=== PATIENT | female | born 1940 | race Caucasian/White ===

== ENCOUNTER → 2016-12-31 | Outpatient (CLI) | payer BC ==
[~2016-12-31] MED LIST: ACET-1256 PO; Colace PO; DIPH25CA37 PO; LOSA50TA6 PO; PRLSR20 PO; SIME125C11 PO; WARF2TAB PO; WITCPAD RE; ZINC20OI RE; [UNRECOGNIZED DRUG - CODE] RE; [UNRECOGNIZED DRUG - CODE] TOP
[2016-12-31 12:17] LABS: BASO % 0.8 %; BASO ABS # 0.03 K/uL (0-0.2); COMPLETE YES; EOS % 5.2 %; HEMATOCRIT 42.1 % (37-47); LYMPH % 22.8 %; LYMPH ABS # 0.88 K/uL (1.2-3.4); MEAN CELL VOLUME 97.2 fL (80-100); MEAN CORPUSCULAR HEMOGLOBIN 33.3 pg (25-34); MEAN CORPUSCULAR HGB CONC 34.2 g/dl (32-36); MEAN PLATELET VOLUME 9.6 fL (7.4-10.4); MONO % 14.5 %; NEUT % 56.7 %; PLATELET COUNT 228 K/uL (130-400); RED BLOOD COUNT 4.33 M/uL (4.2-5.4); WHITE BLOOD COUNT 3.86 K/uL (4.8-10.8)
[2016-12-31 12:38] LABS: BLOOD UREA NITROGEN 14 mg/dl (7-18); BUN/CREATININE RATIO 19.2 (10-20); CARBON DIOXIDE 27 mmol/L (21-32); CHLORIDE 108 mmol/L (98-107); CHOLESTEROL 233 mg/dl (0-200); CREATININE 0.75 mg/dl (0.60-1.20); GLUCOSE 99 mg/dl (70-99); POTASSIUM 3.9 mmol/L (3.5-5.1); SODIUM 141 mmol/L (136-145); TRIGLYCERIDES 208 mg/dl (0-150); VERY LOW DENSITY LIPOPROT CALC 42 mg/dl
[2016-12-31 12:42] LABS: CALCIUM 9.3 mg/dl (8.5-10.1); CHOLESTEROL/HDL RATIO 4.2; HDL CHOLESTEROL 56 mg/dl; LDL CHOLESTEROL CALCULATED 135 mg/dl
[2016-12-31 13:05] LABS: ESTIMATED AVERAGE GLUCOSE 108 mg/dl; HA1C FLAG Normal (Normal)
--- NOTE | 2017-01-05 11:56 | CODING QUERY MEDICAL NECESSITY ---
SUPPORTING DIAGNOSIS NEEDED A supporting diagnosis is required for the test/procedure performed on this patient in order for us to be reimbursed by the patient's insurance. Please provide a supporting diagnosis for the following test/procedure listed below next to the test name along with your signature. *If there is no additional diagnosis for this patient that would support the following test/procedure please document that below next to the test/procedure. Test(s)/Procedure(s) that require a supporting diagnosis: DOS 12/31 * Hba1c DIAGNOSIS: Provider Signature: Date: Thank you Sandie Diaz [facility] Information Management Once completed, please kindly fax back to [phone] For questions please call [phone]
== END | disposition home or self-care (01) ==
LOC: C.LABBFT 07:41
PROVIDERS: ATTEND Internal Medicine
DX: R73.03 Prediabetes (principal); I10 Essential (primary) hypertension; E78.5 Hyperlipidemia, unspecified; D72.819 Decreased white blood cell count, unspecified; M85.80 Other specified disorders of bone density and structure, unspecified site; E55.9 Vitamin D deficiency, unspecified

== ENCOUNTER → 2017-07-23 | Outpatient (CLI) | payer BC ==
--- NOTE | 2017-07-23 15:37 | MAMMOGRAPHY REPORT ---
BILATERAL DIGITAL SCREENING MAMMOGRAM WITH CAD: 07/23/2017 TECHNIQUE: Current study was also evaluated with a Computer Aided Detection (CAD) system. Bilateral CC and MLO views were obtained. COMPARISON: Comparison is made to exams dated: 07/17/2016 mammogram, 07/16/2015 mammogram, 09/11/2013 mammogram, 09/09/2012 mammogram, 09/03/2011 mammogram, and 09/01/2010 mammogram - [facility]. BREAST COMPOSITION: The tissue of both breasts is heterogeneously dense, which may obscure small mas ses. FINDINGS: No suspicious masses, calcifications, or areas of architectural distortion are noted in ei ther breast. There has been no significant interval change compared to prior exams. Scattered bilater al benign-appearing calcifications are not significantly changed. IMPRESSION: ACR BI-RADS CATEGORY 2: BENIGN There is no mammographic evidence of malignancy. A 1 year screening mammogram is recommended. The pa tient will receive written notification of the results. Approximately 10% of breast cancers are not detected with mammography. A negative mammographic report should not delay biopsy if a clinically suggestive mass is present. Ira Gregory M.D. /:07/23/2017 10:42:52 Patient Portal Concierge: Briseyda ARCHER(Irasema)(M), [facility] letter sent: Normal 1/2 BI-RADS Code: ACR BI-RADS Category 2: Benign
== END | disposition home or self-care (01) ==
LOC: C.MAMM 09:26
PROVIDERS: ATTEND Internal Medicine
DX: Z12.31 Encounter for screening mammogram for malignant neoplasm of breast (principal)

== ENCOUNTER → 2017-08-13 | Outpatient (CLI) | payer BC | END | disposition home or self-care (01) | LOC: C.RDSM 09:00 | PROVIDERS: ATTEND Physical Medicine & Rehabilitation Sports Medicine | DX: Z96.653 Presence of artificial knee joint, bilateral (principal) ==

== ENCOUNTER → 2017-12-03 | Outpatient (CLI) | payer BC ==
--- NOTE | 2017-12-03 11:30 | DIAGNOSTIC IMAGING REPORT ---
RIGHT SHOULDER 3 VIEWS HISTORY: RIGHT SHOULDER PAIN COMPARISON: None. FINDINGS: There is no fracture or dislocation. Soft tissues are unremarkable. The right clavicle is intact. Mild degenerative changes at the acromioclavicular and glenohumeral joints. IMPRESSION: Mild osteoarthritis within the right shoulder. No fractures. Electronically signed by: Nick Dubose M.D. 12/03/2017 11:29 AM Dictated Date/Time: 12/03/2017 11:28 AM
== END | disposition home or self-care (01) ==
LOC: C.RDSM 11:00
PROVIDERS: ATTEND Physician Assistant
DX: M25.511 Pain in right shoulder (principal)

== ENCOUNTER → 2018-01-19 | Outpatient (CLI) | payer BC ==
--- NOTE | 2018-01-19 14:04 | DIAGNOSTIC IMAGING REPORT ---
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 Lungs are clear. Diaphragms are smooth. IMPRESSION: Stable postoperative changes left hemithorax. No acute or interval process. The above report was generated using voice recognition software. It may contain grammatical, syntax or spelling errors. Electronically signed by: Martin Medley M.D. 01/19/2018 2:03 PM Dictated Date/Time: 01/19/2018 2:02 PM
== END | disposition home or self-care (01) ==
LOC: C.RAD1850 13:44
PROVIDERS: ATTEND Internal Medicine
DX: C7A.090 Malignant carcinoid tumor of the bronchus and lung (principal)

== ENCOUNTER → 2018-01-20 | Outpatient (CLI) | payer BC ==
[2018-01-20 12:16] LABS: BASO % 0.4 %; BASO ABS # 0.02 K/uL (0-0.2); EOS % 8.4 %; EOS ABS # 0.38 K/uL (0-0.5); HEMATOCRIT 41.5 % (37-47); HEMOGLOBIN 14.1 g/dL (12.0-16.0); LYMPH % 21.1 %; LYMPH ABS # 0.96 K/uL (1.2-3.4); MEAN CORPUSCULAR HEMOGLOBIN 32.3 pg (25-34); MEAN PLATELET VOLUME 9.5 fL (7.4-10.4); MONO % 9.9 %; MONO ABS # 0.45 K/uL (0.11-0.59); NEUT % 60.2 %; NEUT ABS # 2.73 K/uL (1.4-6.5); PLATELET COUNT 247 K/uL (130-400); RED CELL DISTRIBUTION WIDTH CV 12.7 % (11.5-14.5); RED CELL DISTRIBUTION WIDTH SD 43.9 fL (36.4-46.3); WHITE BLOOD COUNT 4.54 K/uL (4.8-10.8)
[2018-01-20 12:36] LABS: BLOOD UREA NITROGEN 18 mg/dl (7-18); CALCIUM 9.1 mg/dl (8.5-10.1); CARBON DIOXIDE 25 mmol/L (21-32); CREATININE 0.85 mg/dl (0.60-1.20); GLUCOSE 94 mg/dl (70-99); POTASSIUM 3.8 mmol/L (3.5-5.1); SODIUM 140 mmol/L (136-145)
[2018-01-20 12:39] LABS: CHOLESTEROL 213 mg/dl (0-200); LDL CHOLESTEROL CALCULATED 132 mg/dl
[2018-01-20 12:56] LABS: HEMOGLOBIN A1C 5.5 % (4.5-5.6)
== END | disposition home or self-care (01) ==
LOC: C.LABBFT 08:51
PROVIDERS: ATTEND Internal Medicine
DX: I10 Essential (primary) hypertension (principal); E55.9 Vitamin D deficiency, unspecified; D72.819 Decreased white blood cell count, unspecified; E78.5 Hyperlipidemia, unspecified; R73.03 Prediabetes

== ENCOUNTER → 2018-04-14 | Outpatient (CLI) | payer BC | END | disposition home or self-care (01) | LOC: C.LABBFT 11:38 | PROVIDERS: ATTEND Internal Medicine | DX: E55.9 Vitamin D deficiency, unspecified (principal) ==

== ENCOUNTER 2024-07-17 10:41 | Inpatient (IN) ==
--- NOTE | 2024-07-17 11:09 | Emergency Department Note ---
Impression & Plan Dizziness, Non-ST elevation MO (NSTEMI), Aneurysm of intracranial artery ED Provider Note HISTORY OF PRESENT ILLNESS: Patient is an 84-year-old female presenting with dizziness and vomiting. Patient reports that this morning around 1015 she was driving her car when she suddenly felt like the world was spinning and she got very dizzy. She had to pull to the side of the road and her took over driving. States that she is still feeling slightly dizzy on arrival to the ER, but has been vomiting for the last hour or so. She has never had symptoms like this before. Denies recent head injury or chiropractic intervention of her neck. Denies any chest pain or shortness of breath. Denies any headache or changes in vision. Denies any numbness, tingling or weakness in her extremities. She denies any recent fevers. She states that 2 days ago she did have an episode in which her vision seemed abnormal and she thought she was having an ocular migraine, but did not have any headache. She had changes in her depth perception and lights in the peripheral vision, but these only lasted for about 10 to 15 minutes. She was feeling well afterwards and went on a walk that evening. She states that she was well yesterday. She currently is having vomiting. Denies any abdominal pain. Denies any dysuria or hematuria. ROS: as above PHYSICAL EXAM: Constitutional: Patient appears in no acute distress. HENT: Head: Normocephalic and atraumatic. Eyes: EOMI, PERRL. Patient has fatigable nystagmus with leftward lateral gaze and with upward gaze. Mouth/Throat: Mucous membranes moist. Neck: Trachea midline. Neck supple. Cardiovascular: RRR, No murmurs, rubs or gallops. Intact distal pulses. Pulmonary/Chest: No respiratory distress. Breath sounds clear and equal bilaterally. No wheezes or rales. Abdominal: Abdomen soft, no tenderness, rebound or guarding. Musculoskeletal: No edema, tenderness or deformity noted. Skin: Warm and dry. No rash, erythema, pallor or cyanosis Psychiatric: Appropriate mood and affect for situation. Neurological: Alert and keenly responsive. Facies symmetric. Able to raise eyebrows, close eyes, smile, puff mouth, stick out tongue, move tongue left and right and raise palate symmetrically. Able to shrug shoulders. PERRLA. SILT to forehead below eye and at jawline. Can hear soft noise bilaterally. Strength 5/5 in bilateral upper and lower extremities. SILT throughout bilateral upper and lower extremities. MDM: - Vitals signs showed hypertension - History obtained via patient. History as above. - Chronic conditions affecting care: HTN; GERD; HLD; carotid artery stenosis - Differential diagnoses include, but are not limited to: CVA; intracranial hemorrhage; ACS; dysrhythmia; electrolyte abnormality - Order placed for continuous cardiac monitoring. At this time, monitor showed rate of 76 bpm with normal sinus rhythm, per my interpretation. - External medical records reviewed. Wellness visit note dated 05/04/2023 was reviewed. Patient follows in their clinic for her multiple medical problems. - EKG interpreted by myself showed normal sinus rhythm. Rate 75 bpm. QT 408. No acute ischemic changes. - Laboratory workup interpreted by myself showed normal WBC; normal PT/INR; slight hypokalemia (K 3.4); elevated troponin (84.8) - Patient given 4 mg IV zofran and 25 mg PO meclizine for symptoms. - CXR negative for pneumonia, per my interpretation - Repeat troponin elevated but stable at 88.5 - CT head wo contrast negative for acute intracranial pathology. - CTA head negative for large vessel occlusion. 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 - CTA neck - UA showed bacteria and few white cells. However, the patient is asymptomatic. Will await urine culture to determine if antibiotics are necessary. - Discussed case with structures mechanic, Dr. Morrison, at 13:10. He reports from a cardiac standpoint the patient is stable and does not necessarily need admission. - Discussed results with patient and her . Offered admission to the hospital, given concern that the dizziness may be cardiac etiology. However, she is feeling improved after Zofran and meclizine and would like to be discharged home. Instructed on return precautions. Recommending taking a baby aspirin daily. A prescription for Zofran 4 mg and meclizine 12.5 mg was sent to the patient's pharmacy. - Patient remained stable throughout the visit. Results were discussed with the patient and patient's family. They were given the opportunity to ask questions. Had lengthy discussion with patient about supportive care return precautions. No changes to medications. Patient to follow up with primary care physician for further evaluation and management. All questions answered. Patient agreeable plan. ASSESSMENT AND PLAN: Diagnosis: dizziness; NSTEMI; aneurysm of intracranial artery Plan: discharge Past Med/Surg History Problem List (Updated 07/17/24 @ 14:[address] MD) Aneurysm of intracranial artery (Acute) Non-ST elevation MO (NSTEMI) (Acute) Dizziness (Acute) Carotid artery stenosis (Acute) Cystocele, midline (Acute) Dyslipidemia (Acute) GERD (gastroesophageal reflux disease) (Acute) Hypertension (Acute) Leukopenia (Acute) Osteopenia (Acute) Rectocele (Acute) Pre-diabetes (Chronic) Vitamin D deficiency (Chronic) Solitary lung nodule (Acute 05/22/14) History of malignant carcinoid tumor of bronchus and lung Medical History (Updated 07/17/24 @ 14:[address] MD) Carcinoid tumor, bronchus, lung, malignant Polymyalgia rheumatica Osteoarthritis of right knee (10/03/14) 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) Surgical History History of tubal ligation History of tonsillectomy History of adenoidectomy History of colonoscopy History of appendectomy History of arthroscopy of left knee History of tooth extraction History of knee replacement History of thoracotomy Family History Mother Parkinsonism Son Hirschsprung's disease Unknown Cataract Brother Prostate cancer Aunt Breast cancer Father Asthma Denies family history of Ovarian cancer Coronary heart disease Myocardial infarction Colorectal cancer Social History Smoking Status: Former smoker Age Quit Using Tobacco: 36; Second Hand Exposure: No; Do You Dip or Chew Tobacco: No; Hx Alcohol Use: Yes Alcohol Intake Frequency Comment: Approximately 1 drink per day. Hx Substance Use: No Preferred Language: Gabonese Communication Ability: Effective Visual Impairment: No Limitations Hearing Ability: Normal marital status: Current Living Situation: Spouse current occupational status: retired Feels Safe at Home: Yes Childhood Exposure to Second-Hand Smoke: No Diet: regular caffeine: Yes Dental Care, Regularly: Yes Physical Activity Frequency: Does not Exercise Seatbelt Use: always Sunscreen Use: No Allergies Allergies Allergy/AdvReac Type Severity Reaction Status Date / Time clindamycin Allergy Intermediate RASH Verified 05/05/23 07:53 codeine Allergy Intermediate HALLALUCINA Verified 05/05/23 07:53 TIONS erythromycin base Allergy Intermediate RASH Verified 05/05/23 07:53 ketoprofen Allergy Intermediate RASH Verified 05/05/23 07:53 Penicillins Allergy Intermediate rash Verified 05/05/23 07:53 Sulfa (Sulfonamide Allergy Intermediate rash Verified 05/05/23 07:53 Antibiotics) tramadol Allergy Mild DIZZINESS Verified 05/05/23 07:53 adhesive Allergy Unknown TEARING OF Verified 05/05/23 07:53 SKIN, SCARRING OF SKIN atorvastatin [From Lipitor] Allergy Verified 05/05/23 07:53 celecoxib [From Celebrex] Allergy Verified 05/05/23 07:53 shellfish derived Allergy Verified 05/05/23 07:53 meloxicam AdvReac Verified 05/05/23 07:53 Lobster Allergy Unknown GI UPSET Uncoded 05/05/23 07:53 sea food AdvReac Uncoded 05/05/23 07:53 Home Meds Home Medications Medication Instructions Recorded Confirmed acetaminophen 325 mg tablet 1,000 mg PO BID 04/05/19 05/05/23 cholecalciferol (vitamin D3) 125 5,000 units PO DAILY #30 tabs 04/05/19 05/05/23 mcg (5,000 unit) tablet diphenhydramine HCl 25 mg tablet 25 mg PO DAILY 04/05/19 05/05/23 famotidine 20 mg tablet 20 mg PO BID gerd 04/08/21 05/05/23 simethicone 125 mg chewable tablet 375 mg PO DAILY PRN abdominal 05/05/23 05/05/23 distention Previous Rx's Medication Instructions Recorded AREXVY 0.5 ml IM ONCE #1 dose 06/30/23 losartan 50 mg tablet 50 mg PO DAILY #90 tabs 04/17/24 meclizine 12.5 mg tablet 12.5 mg PO BID PRN dizziness #20 07/17/24 tabs ondansetron HCl 4 mg tablet 4 mg PO Q6H PRN nausea and 07/17/24 vomiting #14 tabs Results & Data (ED) Vital Signs Vital Signs - 24 hr 07/17/24 10:44 07/17/24 12:12 07/17/24 12:33 Temperature 36.3 C L Temperature Source Skin Pulse Rate 84 76 Pulse Rate [Apical] 71 Pulse Rhythm Pulse Rhythm [Apical] Regular Pulse Strength [Apical] Normal Respiratory Rate 20 18 Respiratory Effort / Characteristics Non-Labored Spontaneous Non-Labored Spontaneous Respiratory Depth Normal Normal Respiratory Pattern Regular Blood Pressure 157/90 H Blood Pressure [Left Arm] 139/80 Blood Pressure Mean 112 Blood Pressure Mean [Left Arm] 99 Blood Pressure Position [Left Arm] Semi-fowlers Pulse Oximetry 96 99 Oxygen Delivery Method Room Air Room Air Sepsis Recent Fever Within 48 Hours No Sepsis New/Unexplained Change in Mental Status N/A Sepsis Action Taken by Nursing No Action Required 07/17/24 12:33 07/17/24 14:00 Temperature Temperature Source Pulse Rate 76 Pulse Rate [Apical] 76 Pulse Rhythm Regular Pulse Rhythm [Apical] Pulse Strength [Apical] Respiratory Rate 17 17 Respiratory Effort / Characteristics Non-Labored Spontaneous Respiratory Depth Normal Respiratory Pattern Blood Pressure Blood Pressure [Left Arm] 145/86 H Blood Pressure Mean Blood Pressure Mean [Left Arm] 105 Blood Pressure Position [Left Arm] Semi-fowlers Pulse Oximetry 98 97 Oxygen Delivery Method Room Air Room Air Sepsis Recent Fever Within 48 Hours Sepsis New/Unexplained Change in Mental Status Sepsis Action Taken by Nursing Laboratory Data 07/17/24 11:15 07/17/24 11:15 Lab Results 07/17/24 07/17/24 07/17/24 Range/Units 11:15 11:21 13:04 WBC 6.98 (4.8-10.8) K/ul RBC 4.27 (4.20-5.40) M/uL Hgb 13.8 (12.0-16.0) g/dl POC Hgb 13.9 (12.0-16.0) g/dl Hct 39.6 (37.0-47.0) % POC Hct 41 (37-47) % MCV 92.7 (80.0-100.0) fL MCH 32.3 (25.0-34.0) pg MCHC 34.8 (32.0-36.0) g/dL RDW Std Deviation 40.0 (36.4-46.3) fL RDW Coeff of Artemio 11.9 (11.5-14.5) % Plt Count 315 (130-400) K/uL MPV 9.0 L (9.4-12.4) fL Immature Gran % (Auto) 1.1 % Neut % (Auto) 50.6 % Lymph % (Auto) 34.2 % Gates % (Auto) 10.0 % Eos % (Auto) 3.4 % Baso % (Auto) 0.7 % Neut # (Auto) 3.52 (1.40-6.50) K/uL Lymph # (Auto) 2.39 (1.20-3.40) K/uL Gates # (Auto) 0.70 H (0.11-0.59) K/uL Eos # (Auto) 0.24 (0.00-0.50) K/uL Baso # (Auto) 0.05 (0.00-0.20) K/uL Immature Gran # (Auto) 0.08 (0.01-0.20) K/uL PT 10.3 (9.0-12.0) Seconds INR 0.9 (0.9-1.1) POC Sodium 141 (135-144) mmol/L Sodium 140 (136-145) mmol/L POC Potassium 3.4 (3.3-5.0) mmol/L Potassium 3.4 L (3.5-5.1) mmol/L POC Chloride 107 (101-112) mmol/L Chloride 107 (98-107) mmol/L Carbon Dioxide 22 (21-32) mmol/L POC Total CO2 20 L (24-31) mmol/L Anion Gap 11 (3-11) POC Anion Gap 18.0 (16-25) mmol/L POC BUN 15 (7-18) mg/dl BUN 16 (6-23) mg/dl Creatinine 0.87 (0.6-1.2) mg/dl POC Creatinine 0.9 (0.6-1.3) mg/dl Est Cr Clr Drug Dosing Not Reportable eGFR 66.48 BUN/Creatinine Ratio 18.4 (10-20) Glucose 146 H (70-99(Fasting)) mg/dl POC Glucose (other) 146 H (70-99) mg/dl Calcium 9.8 (8.6-10.3) mg/dl POC Ioniz Calcium Quentin 1.25 (1.12-1.32) mmol/l Magnesium 2.1 (1.7-2.4) mg/dl Total Bilirubin 0.6 (0.2-1.0) mg/dl AST 18 (13-39) U/L ALT 17 (7-52) U/L Alkaline Phosphatase 68 (34-104) U/L Troponin I High Sens 84.8 H* 88.5 H* (0-14) pg/ml Total Protein 7.1 (6.0-8.3) gm/dl Albumin 4.1 (3.4-5.0) gm/dl Globulin 3.0 (2.5-4.0) gm/dl Albumin/Globulin Ratio 1.4 (0.9-2) Urine Color Urine Appearance (Clear) Urine pH (4.5-7.5) Ur Specific [place] (1.000-1.030) Urine Protein (Negative) Urine Glucose (UA) (Negative) Urine Ketones (Negative) Urine Blood (Negative) Urine Nitrite (Negative) Urine Bilirubin (Negative) Urine Urobilinogen (Negative) Ur Leukocyte Esterase (Negative) Urine WBC (Auto) (0-5) /hpf Urine RBC (Auto) (0-2) /hpf U Hyaline Cast (Auto) (0-2) /lpf U Epithel Cells (Auto) (0-2) /hpf Urine Bacteria (Auto) (None Seen) 07/17/24 Range/Units 13:54 WBC (4.8-10.8) K/ul RBC (4.20-5.40) M/uL Hgb (12.0-16.0) g/dl POC Hgb (12.0-16.0) g/dl Hct (37.0-47.0) % POC Hct (37-47) % MCV (80.0-100.0) fL MCH (25.0-34.0) pg MCHC (32.0-36.0) g/dL RDW Std Deviation (36.4-46.3) fL RDW Coeff of Artemio (11.5-14.5) % Plt Count (130-400) K/uL MPV (9.4-12.4) fL Immature Gran % (Auto) % Neut % (Auto) % Lymph % (Auto) % Gates % (Auto) % Eos % (Auto) % Baso % (Auto) % Neut # (Auto) (1.40-6.50) K/uL Lymph # (Auto) (1.20-3.40) K/uL Gates # (Auto) (0.11-0.59) K/uL Eos # (Auto) (0.00-0.50) K/uL Baso # (Auto) (0.00-0.20) K/uL Immature Gran # (Auto) (0.01-0.20) K/uL PT (9.0-12.0) Seconds INR (0.9-1.1) POC Sodium (135-144) mmol/L Sodium (136-145) mmol/L POC Potassium (3.3-5.0) mmol/L Potassium (3.5-5.1) mmol/L POC Chloride (101-112) mmol/L Chloride (98-107) mmol/L Carbon Dioxide (21-32) mmol/L POC Total CO2 (24-31) mmol/L Anion Gap (3-11) POC Anion Gap (16-25) mmol/L POC BUN (7-18) mg/dl BUN (6-23) mg/dl Creatinine (0.6-1.2) mg/dl POC Creatinine (0.6-1.3) mg/dl Est Cr Clr Drug Dosing eGFR BUN/Creatinine Ratio (10-20) Glucose (70-99(Fasting)) mg/dl POC Glucose (other) (70-99) mg/dl Calcium (8.6-10.3) mg/dl POC Ioniz Calcium Quentin (1.12-1.32) mmol/l Magnesium (1.7-2.4) mg/dl Total Bilirubin (0.2-1.0) mg/dl AST (13-39) U/L ALT (7-52) U/L Alkaline Phosphatase (34-104) U/L Troponin I High Sens (0-14) pg/ml Total Protein (6.0-8.3) gm/dl Albumin (3.4-5.0) gm/dl Globulin (2.5-4.0) gm/dl Albumin/Globulin Ratio (0.9-2) Urine Color Yellow Urine Appearance Clear (Clear) Urine pH 5.5 (4.5-7.5) Ur Specific [place] > 1.045 H (1.000-1.030) Urine Protein Negative (Negative) Urine Glucose (UA) Negative (Negative) Urine Ketones Negative (Negative) Urine Blood Negative (Negative) Urine Nitrite Negative (Negative) Urine Bilirubin Negative (Negative) Urine Urobilinogen Negative (Negative) Ur Leukocyte Esterase Trace H (Negative) Urine WBC (Auto) 6-10 H (0-5) /hpf Urine RBC (Auto) 11-20 H (0-2) /hpf U Hyaline Cast (Auto) 0-2 (0-2) /lpf U Epithel Cells (Auto) 0-2 (0-2) /hpf Urine Bacteria (Auto) 4+ H (None Seen) Administered Medications Discontinued Medications Diphenhydramine HCl (Diphenhydramine 50 Mg/Ml Vial) 50 mg IV ONE ONE Stop: 07/17/24 11:00 Last Admin: 07/17/24 11:20 Dose: 50 mg Documented By: JEWELL Ioversol (Optiray 320 125ml) 118 ml IV ONCE ONE Stop: 07/17/24 12:08 Last Admin: 07/17/24 12:02 Dose: 118 ml Documented By: SARAH Meclizine HCl (Meclizine Hcl 25 Mg Tab) 25 mg PO NOW STA Stop: 07/17/24 11:51 Last Admin: 07/17/24 12:38 Dose: 25 mg Documented By: JEWELL Methylprednisolone (Methylprednisolone 125 Mg/2 Ml Vial) 40 mg IV NOW ONE Stop: 07/17/24 11:00 Last Admin: 07/17/24 11:20 Dose: 40 mg Documented By: JEWELL Ondansetron HCl (Ondansetron Inj 2 Mg/Ml 2 Ml Vial) 4 mg IV NOW STA Stop: 07/17/24 10:59 Last Admin: 07/17/24 11:17 Dose: 4 mg Documented By: JEWELL Imaging Data Radiologist's Impression: Head CT 07/17/24 10:58 CT OF THE HEAD WITHOUT CONTRAST CLINICAL HISTORY: dizziness; nystagmus COMPARISON STUDY: No previous studies for comparison. CT DOSE: 890.26 mGy.cm TECHNIQUE: Helical axial images of the head were obtained without IV contrast. Automated exposure control was utilized for the study. A dose lowering technique was utilized adhering to the principles of ALARA. FINDINGS: No acute intracranial hemorrhage, midline shift or mass effect is present. The ventricular system is unremarkable. The basal cisterns are patent. No extra-axial collections are present. There are no findings to suggest acute dural sinus thrombosis or acute territorial infarct. No significant calvarial abnormalities are present. Visualized portions of the sinuses and mastoid air cells are clear. IMPRESSION: No acute intracranial findings. ACT 112: Negative or not required by law. Electronically signed by: Mac Phillips M.D. 07/17/2024 12:25 PM Head CTA 07/17/24 10:58 CTA ANGIOGRAPHY OF THE HEAD CLINICAL HISTORY: dizziness; nystagmus COMPARISON STUDY: No previous studies for comparison. TECHNIQUE: Helical axial images of the head were obtained following uneventful intravenous administration of 118 cc of Optiray. Sagittal and coronal reconstructions were viewed as well as maximal intensity projections on an independent 3-D workstation. Automated exposure control was utilized for the study. A dose lowering technique was utilized adhering to the principles of ALARA. FINDINGS: No acute intracranial hemorrhage, midline shift or mass effect is present. Ventricular system is normal. Basal cisterns are patent. There are no extra-axial collections. The bilateral M1, M2, A1 and A2 segments are patent. There is moderate calcified atherosclerotic plaque within the cavernous carotids without stenosis. There is a tiny 2 mm saccular aneurysm arising from the right MCA bifurcation on image 126 of 282. There are no additional intracranial aneurysms. The posterior circulation is intact. No large vessel occlusion is present. IMPRESSION: 1. No large vessel occlusion. 2. 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 3. Moderate plaque within the cavernous carotids without stenosis. ACT 112: Negative or not required by law. Electronically signed by: Mac Phillips M.D. 07/17/2024 12:38 PM Neck CTA 07/17/24 10:59 CT angio neck with con CLINICAL HISTORY: 84 years-old Female with dizziness; nystagmus. Acute dizziness with vertigo and vomiting COMPARISON STUDY: Head CT and CTA head of same day TECHNIQUE: Following the IV administration of 118 of Optiray, CT angiogram of the neck was performed from the aortic arch to the skull base. Images are reviewed in the axial, sagittal, and coronal planes. 3-D MIPS images are created and assessed. IV contrast was administered without complication. All measurements were calculated based on NASCET criteria. A dose lowering technique was utilized adhering to the principles of ALARA. FINDINGS: Three-vessel morphology of the thoracic aortic arch. There is patency of innominate and image subclavian arteries. Common carotid arteries are patent. Atherosclerosis of the carotid bulbs without high-grade stenosis. The internal carotid arteries are patent. Codominant and widely patent vertebral arteries. Patent basilar artery. No aneurysm, dissection, high-grade stenosis or arterial occlusion. The lung apices. No thyroid nodule or lymphadenopathy. Unremarkable soft tissues. Degenerative changes of the cervical spine without acute fracture. IMPRESSION:Unremarkable CTA of the neck. ACT 112: Negative or not required by law. The above report was generated using voice recognition software. It may contain grammatical, syntax or spelling errors. Electronically signed by: Richy Larose M.D. 07/17/2024 12:19 PM Discharge Plan Visit Data Chief Complaint: Vertigo Stated Complaint: NAUSEA/VOMITING, VERTIGO ED Provider: Abiola Lane Discharge Problem: Dizziness, Non-ST elevation MO (NSTEMI), Aneurysm of intracranial artery Patient Disposition: Home - Self-Care Discharge Instructions Krames/Other Patient Handouts: Troponin, ED Dizziness, Uncertain Cause Activity Restrictions/Additional Instructions: Your laboratory workup in the emergency department showed that you had an elevated heart enzyme level or troponin level. Your EKG did not show any acute ischemic changes. The structures mechanic felt that you could follow-up with your outpatient doctor and outpatient structures mechanic for further workup. Your CT imaging was negative for any acute evidence of stroke or blood in your head. You were incidentally found to have a 2 mm aneurysm arising from the right MCA bifurcation and some moderate plaque within your Carotids without significant stenosis. This will need close monitoring by your primary care provider. However, if you develop a significant headache, changes in vision, vomiting, chest pain or shortness of breath, or any new or worsening symptoms, he should present back to the emergency department immediately. Recommend starting a baby aspirin daily. Forms Stand Alone Forms: My [facility], Important Visit Information Prescriptions Prescriptions: New ondansetron HCl 4 mg tablet 4 mg PO Q6H PRN (Reason: nausea and vomiting) Qty: 14 0RF meclizine 12.5 mg tablet 12.5 mg PO BID PRN (Reason: dizziness) Qty: 20 0RF No Action AREXVY 0.5 ml IM ONCE Qty: 1 0RF losartan 50 mg tablet 50 mg PO DAILY Qty: 90 3RF famotidine 20 mg tablet 20 mg PO BID simethicone 125 mg tablet,chewable 375 mg PO DAILY PRN (Reason: abdominal distention) acetaminophen 325 mg tablet 1,000 mg PO BID cholecalciferol (vitamin D3) 5,000 unit tablet 5,000 units PO DAILY Qty: 30 diphenhydramine HCl 25 mg tablet 25 mg PO DAILY Referrals Referrals: Davide Jacobsen MD [Primary Care Provider] -
[2024-07-17] MEDS: ONDANSETRON INJ 2 MG/ML 2 ML VIAL IV STA ×2 (11:17→20:03)
[2024-07-17] MEDS: methylPREDNISolone 125 MG/2 ML VIAL IV ONE (11:20)
[2024-07-17] MEDS: diphenhydrAMINE 50 MG/ML VIAL IV ONE (11:20)
[2024-07-17 11:34] LABS: iSTAT Creatinine 0.9 mg/dl (0.6-1.3); iSTAT Hemoglobin 13.9 g/dl (12.0-16.0); iSTAT Ionized Calcium 1.25 mmol/l (1.12-1.32); iSTAT Potassium 3.4 mmol/L (3.3-5.0)
[2024-07-17 11:38] LABS: Basophils # (auto) 0.05 K/uL (0.00-0.20); Basophils % (auto) 0.7 %; Eosinophils # (auto) 0.24 K/uL (0.00-0.50); Eosinophils % (auto) 3.4 %; Hematocrit (blood only) 39.6 % (37.0-47.0); Hemoglobin 13.8 g/dl (12.0-16.0); Immature Granulocytes # (auto) 0.08 K/uL (0.01-0.20); Immature Granulocytes % (auto) 1.1 %; Lymphocytes # (auto) 2.39 K/uL (1.20-3.40); Lymphocytes % (auto) 34.2 %; Mean Corpuscular Hemoglobin 32.3 pg (25.0-34.0); Mean Corpuscular Hgb Conc 34.8 g/dL (32.0-36.0); Mean Corpuscular Volume 92.7 fL (80.0-100.0); Neutrophils # (auto) 3.52 K/uL (1.40-6.50); Neutrophils % (auto) 50.6 %; Platelet Count 315 K/uL (130-400); RDW Coefficient of Variation 11.9 % (11.5-14.5); Red Blood Count 4.27 M/uL (4.20-5.40); White Blood Count 6.98 K/ul (4.8-10.8)
[2024-07-17 11:52] LABS: Alanine Aminotransferase 17 U/L (7-52); Albumin Globulin Ratio 1.4 (0.9-2); Albumin Level 4.1 gm/dl (3.4-5.0); Alkaline Phosphatase 68 U/L (34-104); Anion Gap 11 (3-11); Aspartate Aminotransferase 18 U/L (13-39); BUN Creatinine Ratio 18.4 (10-20); Bilirubin,Total 0.6 mg/dl (0.2-1.0); Blood Urea Nitrogen 16 mg/dl (6-23); Calcium 9.8 mg/dl (8.6-10.3); Carbon Dioxide 22 mmol/L (21-32); Chloride 107 mmol/L (98-107); Glucose 146 mg/dl (70-99(Fasting)); Magnesium 2.1 mg/dl (1.7-2.4); Potassium 3.4 mmol/L (3.5-5.1); Sodium 140 mmol/L (136-145); Total Protein 7.1 gm/dl (6.0-8.3)
[2024-07-17 12:01] LABS: INR 0.9 (0.9-1.1); Prothrombin Time 10.3 Seconds (9.0-12.0)
[2024-07-17] MEDS: OPTIRAY 320 125ml IV ONE (12:02)
[2024-07-17 12:08] LABS: Troponin I High Sensitivity 84.8 pg/ml (0-14)
--- NOTE | 2024-07-17 12:21 | CT Scan Report ---
CT angio neck with con CLINICAL HISTORY: 84 years-old Female with dizziness; nystagmus. Acute dizziness with vertigo and vomiting COMPARISON STUDY: Head CT and CTA head of same day TECHNIQUE: Following the IV administration of 118 of Optiray, CT angiogram of the neck was performed from the aortic arch to the skull base. Images are reviewed in the axial, sagittal, and coronal plane s. 3-D MIPS images are created and assessed. IV contrast was administered without complication. All m easurements were calculated based on NASCET criteria. A dose lowering technique was utilized adherin g to the principles of ALARA. FINDINGS: Three-vessel morphology of the thoracic aortic arch. There is patency of innominate and image subclav morro arteries. Common carotid arteries are patent. Atherosclerosis of the carotid bulbs without high-g rade stenosis. The internal carotid arteries are patent. Codominant and widely patent vertebral arter ies. Patent basilar artery. No aneurysm, dissection, high-grade stenosis or arterial occlusion. The lung apices. No thyroid nodule or lymphadenopathy. Unremarkable soft tissues. Degenerative change s of the cervical spine without acute fracture. IMPRESSION:Unremarkable CTA of the neck. ACT 112: Negative or not required by law. The above report was generated using voice recognition software. It may contain grammatical, syntax o r spelling errors. Electronically signed by: Richy Larose M.D. 07/17/2024 12:19 PM
--- NOTE | 2024-07-17 12:26 | CT Scan Report ---
CT OF THE HEAD WITHOUT CONTRAST CLINICAL HISTORY: dizziness; nystagmus COMPARISON STUDY: No previous studies for comparison. CT DOSE: 890.26 mGy.cm TECHNIQUE: Helical axial images of the head were obtained without IV contrast. Automated exposure con trol was utilized for the study. A dose lowering technique was utilized adhering to the principles o f ALARA. FINDINGS: No acute intracranial hemorrhage, midline shift or mass effect is present. The ventricular system is unremarkable. The basal cisterns are patent. No extra-axial collections are present. There are no findings to suggest acute dural sinus thrombosis or acute territorial infarct. No significant calvarial abnormalities are present. Visualized portions of the sinuses and mastoid air cells are elva ar. IMPRESSION: No acute intracranial findings. ACT 112: Negative or not required by law. Electronically signed by: Mac Phillips M.D. 07/17/2024 12:25 PM
[2024-07-17] MEDS: MECLIZINE HCL 25 MG TAB PO STA ×2 (12:38→17:46)
--- NOTE | 2024-07-17 12:40 | CT Scan Report ---
CTA ANGIOGRAPHY OF THE HEAD CLINICAL HISTORY: dizziness; nystagmus COMPARISON STUDY: No previous studies for comparison. TECHNIQUE: Helical axial images of the head were obtained following uneventful intravenous administr ation of 118 cc of Optiray. Sagittal and coronal reconstructions were viewed as well as maximal inten sity projections on an independent 3-D workstation. Automated exposure control was utilized for the study. A dose lowering technique was utilized adhering to the principles of ALARA. FINDINGS: No acute intracranial hemorrhage, midline shift or mass effect is present. Ventricular syst em is normal. Basal cisterns are patent. There are no extra-axial collections. The bilateral M1, M2, A1 and A2 segments are patent. There is moderate calcified atherosclerotic plaque within the cavernou s carotids without stenosis. There is a tiny 2 mm saccular aneurysm arising from the right MCA bifurc ation on image 126 of 282. There are no additional intracranial aneurysms. The posterior circulation is intact. No large vessel occlusion is present. IMPRESSION: 1. No large vessel occlusion. 2. 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 3. Moderate plaque within the cavernous carotids without stenosis. ACT 112: Negative or not required by law. Electronically signed by: Mac Phillips M.D. 07/17/2024 12:38 PM
[2024-07-17 14:19] LABS: Troponin I High Sensitivity 88.5 pg/ml (0-14)
[2024-07-17 14:34] LABS: Appearance Urine Clear (Clear); Bacteria Urine Automated 4+ (None Seen); Bilirubin Urine Negative (Negative); Blood Urine Negative (Negative); Cast Urine Automated 0-2 /lpf (0-2); Color Urine Yellow; Epithelial Cell Urine Auto 0-2 /hpf (0-2); Glucose Urine UA Negative (Negative); Ketones Urine Negative (Negative); Leukocyte Esterase Urine Trace (Negative); Nitrite Urine Negative (Negative); Protein Urine Negative (Negative); Specific Gravity Urine > 1.045 (1.000-1.030); Urobilinogen Urine Negative (Negative); pH Urine 5.5 (4.5-7.5)
--- NOTE | 2024-07-17 15:14 | Electrocardiogram Report ---
Test Reason : Blood Pressure : */* mmHG Vent. Rate : 75 BPM Atrial Rate : 75 BPM P-R Int : 200 ms QRS Dur : 84 ms QT Int : 408 ms P-R-T Axes : 20 -2 -4 degrees QTcB Int : 455 ms Normal sinus rhythm Poor R wave progression, consider anterior PA vs. lead placement vs. LVH Abnormal ECG When compared with ECG of 18-Apr-2014 10:58, Borderline criteria for Anterior infarct are now Present Confirmed by Sahil Morrison ([id number]) on 07/17/2024 3:13:48 PM Referred By: REFERRED SELF Confirmed By: Sahil Morrison
[2024-07-17] MEDS: ONDANSETRON 4 MG OD TAB PO STA (16:17)
--- NOTE | 2024-07-17 16:17 | History & Physical Report ---
Date of Service July 17, 2024 Assessment & Plan (1) Dizziness: Plan: Patient with worsening vertigo, nausea, and vomiting that began while driving this morning - symptom relief with Zofran in ER, became dizzy and needed readmitted and tried to go home - CT head without acute changes - CTA head without acute changes, tiny saccular aneurysm 2mm from right MCA noted - Neck CTA unremarkable - Lateral Nystagmus on exam, otherwise neuro exam unremarkable - Brain MRI pending - lipid panel with AM labs - monitor on telemetry Vomiting - patient with continued vomiting, mucous membranes dry on exam - Zofran and meclizine as needed - increase diet as tolerated with Zofran relief - With national IV fluid shortage, will defer IV fluid resuscitation at this time if able to tolerate PO fluids with Zofran (2) Hypokalemia: Plan: likely secondary to recent vomiting - 3.4 on admission -> 40 MeQ PO ordered - Mg pending - recheck with AM labs (3) Bacteriuria: Plan: asymptomatic - UA showing trace leukocyte esterase, 6-10 white blood cells, 11-20 RBC, 4+ bacteria - Urine culture pending - will defer antibiotic therapy at this time is asymptomatic (4) Elevated troponin: Plan: Ordered due to dizziness/ pre-syncopal episode - 84.8 -> 88.5 - patient denies chest pain, dyspnea, stated it was not a presyncopal episode but ongoing dizziness - EKG NSR, no ischemic changes - continue to trend - monitor on telemetry - Am BMP and Mg Plan Chronic stable diagnoses: HTN - continue losartan GERD - continue famotidine osteopenia - continue Vit D supplement pre-diabetes - diet controlled, recent A1c 5.7% VTE ppx: SCDs Diet: clears - increase as tolerated Code status: DNR/DNI Dispo: Med surg/ tele Admission and Anticipated Discharge Date Admission Date: 07/17/24 History of Present Illness Chief Complaint: dizziness Primary Care Provider: Davide Jacobsen MD Patient was seen at bedside with her who was a previous heme/oncology doctor. Patient is an 84-year-old female with a past medical history of CAD, hyperlipidemia, hypertension, osteopenia, prediabetes, GERD, benign tumor resected in 2013. She presents today due to dizziness since Wednesday. She stated on Wednesday she began with dizziness that her stated was similar to an ocular migraine. She stated she felt like she had difficulty with depth perception. This improved and then while driving this morning she began with a dizzy episode, had to bone puller, and came into the ER. Her symptoms were relieved with Zofran, Benadryl, Solu-Medrol, and Antivert. She was discharged home from the ER and on her way out the door, her dizziness resumed and she was readmitted. Her troponin was found to be elevated at 88.1, EKG within normal limits. Dizziness has now resumed and she is vomiting on exam. She also stated that she is felt lightheaded all weekend. The patient's is good friends with Dr. Morrison evaluated the patient and stated that he does not believe it is a cardiac cause at this time. Patient denies vision changes, rhinorrhea, sore throat, cough, dyspnea, dyspnea on exertion, chest pain, abdominal pain, edema, numbness, tingling. She has not had any flulike symptoms or illness recently. She denies history of previous VTE or episodes like this prior. She does not use oxygen at baseline. She took all of her home medications this morning. She is DNR/DNI status. The patient was discussed with Dr. Marie at the time of the admission/consult. Allergies Allergy/AdvReac Type Severity Reaction Status Date / Time clindamycin Allergy Intermediate RASH Verified 05/05/23 07:53 codeine Allergy Intermediate HALLALUCINA Verified 05/05/23 07:53 TIONS erythromycin base Allergy Intermediate RASH Verified 05/05/23 07:53 ketoprofen Allergy Intermediate RASH Verified 05/05/23 07:53 Penicillins Allergy Intermediate rash Verified 05/05/23 07:53 Sulfa (Sulfonamide Allergy Intermediate rash Verified 05/05/23 07:53 Antibiotics) tramadol Allergy Mild DIZZINESS Verified 05/05/23 07:53 adhesive Allergy Unknown TEARING OF Verified 05/05/23 07:53 SKIN, SCARRING OF SKIN atorvastatin [From Lipitor] Allergy Verified 05/05/23 07:53 celecoxib [From Celebrex] Allergy Verified 05/05/23 07:53 shellfish derived Allergy Verified 05/05/23 07:53 meloxicam AdvReac Verified 05/05/23 07:53 Lobster Allergy Unknown GI UPSET Uncoded 05/05/23 07:53 sea food AdvReac Uncoded 05/05/23 07:53 Home Medications Medication Instructions Recorded Confirmed Type acetaminophen 325 mg tablet 1,000 mg PO BID 04/05/19 07/17/24 History cholecalciferol (vitamin D3) 125 5,000 units PO DAILY #30 tabs 04/05/19 07/17/24 History mcg (5,000 unit) tablet diphenhydramine HCl 25 mg tablet 25 mg PO DAILY 04/05/19 07/17/24 History famotidine 20 mg tablet 20 mg PO BID gerd 04/08/21 07/17/24 History simethicone 125 mg chewable tablet 375 mg PO DAILY PRN abdominal 05/05/23 05/05/23 History distention AREXVY 0.5 ml IM ONCE #1 dose 06/30/23 Rx losartan 50 mg tablet 50 mg PO DAILY #90 tabs 04/17/24 07/17/24 Rx meclizine 12.5 mg tablet 12.5 mg PO BID PRN dizziness #20 07/17/24 Rx tabs ondansetron HCl 4 mg tablet 4 mg PO Q6H PRN nausea and 07/17/24 Rx vomiting #14 tabs Past Med/Surg History Problem List (Updated 07/18/24 @ 11:36 by Jonathan Barrera MD) Embolic stroke Elevated troponin Bacteriuria Hypokalemia Aneurysm of intracranial artery (Acute) Non-ST elevation VT (NSTEMI) (Acute) Dizziness (Acute) Carotid artery stenosis (Acute) Cystocele, midline (Acute) Dyslipidemia (Acute) GERD (gastroesophageal reflux disease) (Acute) Hypertension (Acute) Leukopenia (Acute) Osteopenia (Acute) Rectocele (Acute) Pre-diabetes (Chronic) Vitamin D deficiency (Chronic) Solitary lung nodule (Acute 05/22/14) History of malignant carcinoid tumor of bronchus and lung Medical History (Updated 07/18/24 @ 11:36 by Jonathan Barrera MD) Carcinoid tumor, bronchus, lung, malignant Polymyalgia rheumatica Osteoarthritis of right knee (10/03/14) 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) Surgical History History of tubal ligation History of tonsillectomy History of adenoidectomy History of colonoscopy History of appendectomy History of arthroscopy of left knee History of tooth extraction History of knee replacement History of thoracotomy Family History Mother Parkinsonism Son Hirschsprung's disease Unknown Cataract Brother Prostate cancer Aunt Breast cancer Father Asthma Denies family history of Ovarian cancer Coronary heart disease Myocardial infarction Colorectal cancer Social History Smoking Status: Former smoker Age Quit Using Tobacco: 36; Second Hand Exposure: No; Do You Dip or Chew Tobacco: No; Tobacco Cessation Education Requested by Patient: No Hx Alcohol Use: Yes Alcohol Intake Frequency Comment: Approximately 1 drink per day. Hx Substance Use: No Preferred Language: Kinyarwanda Communication Ability: Effective Visual Impairment: No Limitations Hearing Ability: Normal Forest Aide Required: No Beliefs That Will Affect Care: None marital status: Current Living Situation: Spouse current occupational status: retired Other Information That Helps Us Care for You: No Feels Safe at Home: Yes Safety Concerns: Feels Safe At This Time Childhood Exposure to Second-Hand Smoke: No Diet: regular caffeine: Yes Dental Care, Regularly: Yes Physical Activity Frequency: Does not Exercise Seatbelt Use: always Sunscreen Use: No Review of Systems Review of Systems: see HPI Physical Exam Physical Exam: The patient is awake, alert and oriented 3, well developed and well nourished, normocephalic and atraumatic, in no acute distress. Non-toxic appearing. HEENT- EOMI, mucous membranes dry. Hearing grossly intact. Heart-normal S1 and S2. No murmurs, rubs or gallops. Lungs-clear bilaterally, no respiratory distress, no accessory muscle use. Abdomen-normal bowel sounds and soft. No ascites noted. Non-tender. Vomiting on exam. Extremities- no clubbing, cyanosis, or edema. Rheumatologic-normal range of motion. Eyes: + nystagmus Musculoskeletal: no cyanosis or clubbing, extremities motor strength 5/5 Neurologic: PERRL, EOMI, accommodation nl, no face palsy, no dysarthria CN's II-XI intact bilaterally Motor/Sensory: no sensory deficit Results & Data Results & Data Vital Signs (Past 12 Hours) Vital Signs Temp Pulse Pulse Resp BP BP Pulse Ox 07/17/24 16:00 92 H 20 163/93 H 94 07/17/24 15:10 82 17 140/83 91 07/17/24 14:00 76 17 145/86 H 97 07/17/24 12:33 76 17 98 07/17/24 12:33 71 18 139/80 99 07/17/24 12:12 76 07/17/24 10:44 36.3 C L 84 20 157/90 H 96 O2 Del Method 07/17/24 16:00 Room Air 07/17/24 15:10 Room Air 07/17/24 14:00 Room Air 07/17/24 12:33 Room Air 07/17/24 12:33 Room Air 07/17/24 12:12 07/17/24 10:44 Room Air Code Status & VTE Plan Code Status DNR/ DNI VTE Prophylaxis Plan VTE Prophylaxis will be ordered: Yes Supervising Physician Co-Signing Physician Notes I personally saw and examined the patient. I independently reviewed the labs, EKG, imaging, problem list, medication list, past medical history and family history. I verified all vargas points and agree with Yeimi Panchal PA-C with the following exceptions and/or additions: 84 year old female presents to the ER with vertigo, waxing and waning symptoms. No prior episode of BPPV. No ear fullness or recent viral illness O/E HS RRR, no murmurs, Chest CTAB, Abdo SNT, no pronator drift, lower extremity 5/5 power, no extremity sensation deficit, no nystagmus, PERRL, EOMI intact A/P Vertigo - improved with meclizine although severe symptoms and ongoing would recommend MRI brain w/wo IV contrast. PT eval for Familia manoeuvre if MRI negative. PG Care Time/CCT Total # of Minutes Spent Total Time Spent with Patient: Total time spent is greater than 50% in coordination of care (as documented) at patient's floor/unit and/or counseling patient: Coding Level of Care Code 78959 INT INP/OBS CARE 3/75MIN Diagnoses Dizziness R42 Hypokalemia E87.6 Bacteriuria R82.71 Elevated troponin R79.89
[2024-07-17] MEDS: GADOBUTROL 65ML VIAL IV ONE (18:15)
[2024-07-17] MEDS ORDERED: ONDANSETRON INJ 2 MG/ML 2 ML VIAL IV PRN (18:48)
[2024-07-17] MEDS: POTASSIUM CHLORIDE CRTAB 20 MEQ TABCR PO STA (20:02)
[2024-07-17] MEDS: FAMOTIDINE 20 MG TAB PO SCH (21:06)
[2024-07-17] MEDS: MECLIZINE HCL 25 MG TAB PO PRN (22:34)
[2024-07-18 06:23] LABS: Hematocrit (blood only) 36.3 % (37.0-47.0); Hemoglobin 12.4 g/dl (12.0-16.0); Mean Corpuscular Hemoglobin 31.9 pg (25.0-34.0); Mean Corpuscular Hgb Conc 34.2 g/dL (32.0-36.0); Mean Corpuscular Volume 93.3 fL (80.0-100.0); Mean Platelet Volume 9.2 fL (9.4-12.4); Platelet Count 280 K/uL (130-400); RDW Standard Deviation 41.3 fL (36.4-46.3); Red Blood Count 3.89 M/uL (4.20-5.40); White Blood Count 12.62 K/ul (4.8-10.8)
[2024-07-18 06:56] LABS: BUN Creatinine Ratio 17.2 (10-20); Calcium 9.5 mg/dl (8.6-10.3); Chol HDL Ratio 4.4 (0-5); Creatinine Clr Calc Pharmacy 43.9 ml/min; Magnesium 2.1 mg/dl (1.7-2.4); Potassium 4.1 mmol/L (3.5-5.1)
[2024-07-18] MEDS: LOSARTAN POTASSIUM 50 MG TAB PO SCH (08:04)
[2024-07-18] MEDS: CHOLECALCIFEROL 125 MCG (5,000 UNITS) TAB PO SCH (08:04)
--- NOTE | 2024-07-18 08:36 | Magnetic Resonance Report ---
MR brain wo/w con HISTORY: 84 years-old Female Vertigo COMPARISON: Head CT of same day. TECHNIQUE: Multiplanar and multisequence MRI of the brain was obtained with and without IV contrast. FINDINGS: There are several punctate multivascular territory distribution of restricted diffusion within the ce rebral hemispheres including the superior left frontal lobe, left periventricular distribution, cauda te nucleus and right posterior temporal/bilateral occipital distributions. No acute or subacute malika torial infarct. Midline structures appear unremarkable. Degenerative changes of the cervical spine. N o pathologic blooming artifact. Study is motion degraded. Cerebral venous sinuses and major arterial flow voids appear patent. Skull, orbits and soft tissues a re unremarkable. Prior bilateral lens repair. Mastoid air cells and paranasal sinuses appear clear. M ild involutional changes. Mild scattered T2/FLAIR hyperintense foci throughout the white matter. No a bnormal enhancement. IMPRESSION: 1. There are several small subcentimeter infarcts within the cerebral hemispheres compatible with a p roximal thromboembolic source. 2. No acute or subacute territorial infarct, intracranial hemorrhage or midline shift. 3. Involutional changes with mild chronic microvascular ischemic disease. 4. No abnormal enhancement. ACT 112: Negative or not required by law. The above report was generated using voice recognition software. It may contain grammatical, syntax o r spelling errors. Dictated: 07/18/2024 8:13 AM Transcribed: 07/18/2024 8:23 AM Arian [id number] [email or web address] Electronically signed by: Richy Larose M.D. 07/18/2024 8:34 AM
--- NOTE | 2024-07-18 10:09 | XCELERA ---
[id number] [id number]
[2024-07-18] MEDS: MECLIZINE 12.5 MG TAB PO SCH (10:13)
[2024-07-18 11:09] VITALS: RESP 18
--- NOTE | 2024-07-18 11:48 | Neurology Consultation ---
Date of Consultation July 18, 2024 Assessment & Plan (1) Embolic stroke: (2) Aneurysm of intracranial artery: Plan 84-year-old female with a remote history of lung cancer, history of polymyalgia rheumatica a few years ago, in remission, presenting with a transient visual epi sode over the weekend resembling a migrainous aura, followed by an episode of intense vertigo with associated nausea and emesis. Subsequently found to have acute multifocal embolic appearing infarcts on brain MRI involving both cerebral hemispheres. CT angiography of the head and neck revealing an incidental 2 mm saccular aneurysm arising from the right MCA bifurcation and moderate bilateral cavernous carotid plaque without significant stenosis. Would recommend dual antiplatelet therapy, aspirin 81 mg/day and clopidogrel 75 mg/day for 3 weeks, followed by aspirin monotherapy, 81 mg/day. Patient has a history of intolerance to statins. However, could consider a trial of a low-dose of rosuvastatin given presence of carotid atherosclerotic plaque bilaterally. Would recommend outpatient ambulatory cardiac monitoring. Given patient's history of polymyalgia rheumatica, although in remission, would recommend checking an ESR and CRP. If her inflammatory markers are significantly elevated, could consider obtaining a temporal artery biopsy. Should not require additional outpatient neurology follow-up. History of Present Illness Reason for Consultation: embolic strokes Requesting Physician: Yaz Attending Physician: Andrew Mukherjee MD History of Present Illness The patient is an 84-year-old female who presented to the emergency department yesterday with a complaint of acute, severe, vertigo, with associated nausea and emesis. Her symptoms improved with treatment. A CTA of the head and neck was negative for hemorrhage or acute process. There was evidence of an incidental 2 mm saccular aneurysm at the right MCA bifurcation and moderate carotid plaque. She was discharged from the emergency department. However, upon leaving the hospital her dizziness returned and she was subsequently admitted for further evaluation. In addition to the above dizziness, the patient also reported an unusual episode of vision disturbance of sudden onset that occurred over the weekend. She has some difficulty describing the vision disturbance although reported some difficulty with focusing and perhaps depth perception, followed by a circular visual distortion in the periphery potentially consistent with a migrainous aura. She does not have a history of migraine with aura, however. She does not recall experiencing any episodes of focal weakness, sensory loss, or change in speech. A follow-up brain MRI was completed which revealed multiple small embolic appearing infarcts in both cerebral hemispheres, no hemorrhage. I did independently review these images. Currently, the patient is asymptomatic, no headache, dizziness, vertigo, vision loss, diplopia, change in speech, focal weakness or sensory loss. No difficulty with gait or balance. Past medical history notable for polymyalgia rheumatica that was diagnosed and treated several years ago, has not been clinically active since that time. Allergies Allergy/AdvReac Type Severity Reaction Status Date / Time clindamycin Allergy Intermediate RASH Verified 05/05/23 07:53 codeine Allergy Intermediate HALLALUCINA Verified 05/05/23 07:53 TIONS erythromycin base Allergy Intermediate RASH Verified 05/05/23 07:53 ketoprofen Allergy Intermediate RASH Verified 05/05/23 07:53 Penicillins Allergy Intermediate rash Verified 05/05/23 07:53 Sulfa (Sulfonamide Allergy Intermediate rash Verified 05/05/23 07:53 Antibiotics) tramadol Allergy Mild DIZZINESS Verified 05/05/23 07:53 adhesive Allergy Unknown TEARING OF Verified 05/05/23 07:53 SKIN, SCARRING OF SKIN atorvastatin [From Lipitor] Allergy Verified 05/05/23 07:53 celecoxib [From Celebrex] Allergy Verified 05/05/23 07:53 shellfish derived Allergy Verified 05/05/23 07:53 meloxicam AdvReac Verified 05/05/23 07:53 Lobster Allergy Unknown GI UPSET Uncoded 05/05/23 07:53 sea food AdvReac Uncoded 05/05/23 07:53 Home Medications Medication Instructions Recorded Confirmed Type acetaminophen 325 mg tablet 1,000 mg PO BID 04/05/19 07/17/24 History cholecalciferol (vitamin D3) 125 5,000 units PO DAILY #30 tabs 04/05/19 07/17/24 History mcg (5,000 unit) tablet diphenhydramine HCl 25 mg tablet 25 mg PO DAILY 04/05/19 07/17/24 History famotidine 20 mg tablet 20 mg PO BID gerd 04/08/21 07/17/24 History simethicone 125 mg chewable tablet 375 mg PO DAILY PRN abdominal 05/05/23 05/05/23 History distention AREXVY 0.5 ml IM ONCE #1 dose 06/30/23 Rx losartan 50 mg tablet 50 mg PO DAILY #90 tabs 04/17/24 07/17/24 Rx meclizine 12.5 mg tablet 12.5 mg PO BID PRN dizziness #20 07/17/24 Rx tabs ondansetron HCl 4 mg tablet 4 mg PO Q6H PRN nausea and 07/17/24 Rx vomiting #14 tabs Patient History Medical History (Updated 07/18/24 @ 11:36 by Jonathan Barrera MD) Carcinoid tumor, bronchus, lung, malignant Polymyalgia rheumatica Osteoarthritis of right knee (10/03/14) 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) Surgical History History of tubal ligation History of tonsillectomy History of adenoidectomy History of colonoscopy History of appendectomy History of arthroscopy of left knee History of tooth extraction History of knee replacement History of thoracotomy Family History Mother Parkinsonism Son Hirschsprung's disease Unknown Cataract Brother Prostate cancer Aunt Breast cancer Father Asthma Denies family history of Ovarian cancer Coronary heart disease Myocardial infarction Colorectal cancer Social History Smoking Status: Former smoker Age Quit Using Tobacco: 36; Second Hand Exposure: No; Do You Dip or Chew Tobacco: No; Tobacco Cessation Education Requested by Patient: No Hx Alcohol Use: Yes Alcohol Intake Frequency Comment: Approximately 1 drink per day. Hx Substance Use: No Preferred Language: Chadian Communication Ability: Effective Visual Impairment: No Limitations Hearing Ability: Normal Vice President Payment Required: No Beliefs That Will Affect Care: None marital status: Current Living Situation: Spouse current occupational status: retired Other Information That Helps Us Care for You: No Feels Safe at Home: Yes Safety Concerns: Feels Safe At This Time Childhood Exposure to Second-Hand Smoke: No Diet: regular caffeine: Yes Dental Care, Regularly: Yes Physical Activity Frequency: Does not Exercise Seatbelt Use: always Sunscreen Use: No Review of Systems Constitutional: no fever and no chills Eyes: as per Subjective / HPI Ear, Nose, Mouth, Throat: no hearing loss Respiratory: no cough and no dyspnea Cardiovascular: no chest pain and no palpitations Gastrointestinal: no nausea and no vomiting Genitourinary: no dysuria Musculoskeletal: no neck pain and no myalgia Integumentary: no rash and no lesions Neurologic: as per Subjective / HPI Psychiatric: no depression and no anxiety Hematologic / Lymphatic: no easy bleeding and no easy bruising Exam (Neuro) Constitutional: well developed and well nourished; no acute distress Eyes: normal visual andrea by confrontation, PERRL and EOM intact bilaterally; no nystagmus Neurologic: Oriented to:: Person, Place and Time Memory: Short Term Intact and Remote Intact Attention: Span Intact and Concentration Intact Speech Fluency: negative Dysarthria or Dysfluency Speech Aphasia: negative Aphasia Fund of Knowledge: Current Events, Past History and Vocabulary Cranial Nerves: Normal II, III, IV, , V, VII, VIII, IX, X, XI and XII Motor Strength: Normal Lower Extremities and Normal Upper Extremities Motor Tone: Normal Lower Extremities and Normal Upper Extremities Muscle Bulk/Involuntary Movements: No Involuntary Movements; negative Muscle Atrophy Sensation: Light Touch Intact, Pain/Temperature Intact, Vibration Intact and Proprioception Intact Coordination: Normal; negative Limited Balance Deep Tendon Reflexes: Rt Triceps: 2+, Lt Triceps: 2+, Rt Biceps: 2+, Lt Biceps: 2+, Rt Brachioradialis: 2+, Lt Brachioradialis: 2+, Rt Patellar: 2+, Lt Patellar: 2+, Rt Ankle: 1+ and Lt Ankle: 1+ Gait: Normal Station and Gait Results & Data Vital Signs (Past 12 Hours) Vital Signs Temp Pulse Pulse Resp BP BP Pulse Ox 07/18/24 11:09 36.3 C L 79 18 146/73 H 94 07/18/24 08:02 121/79 07/18/24 07:35 37.0 C 70 16 105/60 93 07/18/24 07:30 07/18/24 07:04 78 07/18/24 03:34 36.7 C 78 16 122/65 94 07/17/24 23:38 94 H O2 Del Method 07/18/24 11:09 Room Air 07/18/24 08:02 07/18/24 07:35 Room Air 07/18/24 07:30 Room Air 07/18/24 07:04 07/18/24 03:34 Room Air 07/17/24 23:38 Laboratory Results WBC 12.62, hemoglobin 12.4, hematocrit 36.3, platelet count 280, sodium 139, potassium 4.1, BUN 15, creatinine 0.87, glucose 102, calcium 9.5, magnesium 2.1, AST 18, ALT 17, high-sensitivity troponin 80.5, triglycerides 145, cholesterol 188, LDL 116, VLDL 29, HDL 43 Diagnostic Findings An echocardiogram completed this morning reveals normal left ventricular systolic function, no regional wall motion abnormalities, borderline concentric LVH, EF 60 to 65%, no interatrial shunt. An electrocardiogram reveals a normal sinus rhythm. Coding Level of Care Code 31591 INT INP/OBS CARE MIN Diagnoses Embolic stroke I63.9 Aneurysm of intracranial artery I67.1 Time Spent (min) 90 Comment Total time includes patient contact, chart review, counseling, note preparation
[2024-07-18 12:30] LABS: C Reactive Protein 0.66 mg/dl (0-0.5)
--- NOTE | 2024-07-18 14:13 | Electrocardiogram Report ---
Test Reason : Blood Pressure : */* mmHG Vent. Rate : 92 BPM Atrial Rate : 92 BPM P-R Int : 184 ms QRS Dur : 82 ms QT Int : 374 ms P-R-T Axes : 36 -4 48 degrees QTcB Int : 462 ms Normal sinus rhythm Cannot rule out Inferior infarct (cited on or before 17-Jul-2024) Poor R wave progression, consider anterior AK vs. lead placement vs. LVH Abnormal ECG When compared with ECG of 17-Jul-2024 11:15, Nonspecific T wave abnormality now evident in Lateral leads Confirmed by Sahil Morrison ([id number]) on 07/18/2024 2:13:30 PM Referred By: REFERRED SELF Confirmed By: Sahil Morrison
[2024-07-18 15:02] VITALS: PULSE 75; TEMP 97.5; O2SAT 96
[2024-07-18 17:38] VITALS: BP 122/65
--- NOTE | 2024-07-18 17:48 | Discharge Summary ---
Discharge Summary Date of Service July 18, 2024 Principal Dx & Hospital Course #1 = Principal Diagnosis (1) Dizziness: Patient with worsening vertigo, nausea, and vomiting that began while driving this morning - symptom relief with Zofran in ER, became dizzy and needed readmitted and tried to go home - CT head without acute changes - CTA head without acute changes, tiny saccular aneurysm 2mm from right MCA noted - Neck CTA unremarkable - Lateral Nystagmus on exam, otherwise neuro exam unremarkable - Brain MRI pending - lipid panel with AM labs - monitor on telemetry Vomiting - patient with continued vomiting, mucous membranes dry on exam - Zofran and meclizine as needed - increase diet as tolerated with Zofran relief - With national IV fluid shortage, will defer IV fluid resuscitation at this time if able to tolerate PO fluids with Zofran (2) Hypokalemia: likely secondary to recent vomiting - 3.4 on admission -> 40 MeQ PO ordered - Mg pending - recheck with AM labs (3) Bacteriuria: asymptomatic - UA showing trace leukocyte esterase, 6-10 white blood cells, 11-20 RBC, 4+ bacteria - Urine culture pending - will defer antibiotic therapy at this time is asymptomatic (4) Elevated troponin: Ordered due to dizziness/ pre-syncopal episode - 84.8 -> 88.5 - patient denies chest pain, dyspnea, stated it was not a presyncopal episode but ongoing dizziness - EKG NSR, no ischemic changes - continue to trend - monitor on telemetry - Am BMP and Mg Plan Chronic stable diagnoses: HTN - continue losartan GERD - continue famotidine osteopenia - continue Vit D supplement pre-diabetes - diet controlled, recent A1c 5.7% VTE ppx: SCDs Diet: clears - increase as tolerated Code status: DNR/DNI Dispo: Med surg/ tele Admission HPI Per Admitting Provider Patient was seen at bedside with her who was a previous heme/oncology doctor. Patient is an 84-year-old female with a past medical history of CAD, hyperlipidemia, hypertension, osteopenia, prediabetes, GERD, benign tumor resected in 2013. She presents today due to dizziness since Wednesday. She stated on Wednesday she began with dizziness that her stated was similar to an ocular migraine. She stated she felt like she had difficulty with depth perception. This improved and then while driving this morning she began with a dizzy episode, had to tree puller, and came into the ER. Her symptoms were relieved with Zofran, Benadryl, Solu-Medrol, and Antivert. She was discharged home from the ER and on her way out the door, her dizziness resumed and she was readmitted. Her troponin was found to be elevated at 88.1, EKG within normal limits. Dizziness has now resumed and she is vomiting on exam. She also stated that she is felt lightheaded all weekend. The patient's is good friends with Dr. Morrison evaluated the patient and stated that he does not believe it is a cardiac cause at this time. Patient denies vision changes, rhinorrhea, sore throat, cough, dyspnea, dyspnea on exertion, chest pain, abdominal pain, edema, numbness, tingling. She has not had any flulike symptoms or illness recently. She denies history of previous VTE or episodes like this prior. She does not use oxygen at baseline. She took all of her home medications this morning. She is DNR/DNI status. The patient was discussed with Dr. Marie at the time of the admission/consult. Discharge Plan Discharge Items Patient Disposition: Home - Self-Care Reason For Visit: ACUTE B/L STROKES Discharge Diagnosis: 1. acute bilateral embolic strokes 2. 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 vertigo - due to #1 - improved/resolved 4. visual disturbance - due to #1 - resolved Activity: As commented below Activity Comment: plan to take it easy for the next week; no strenuous activities Exercise Comment: wait at least 1 week before resuming exercise; walking/light activity is OK Driving/Machine Use: Recommend no driving for about 1 week Non-emergency contact: Primary Care Provider and Specialist Call non-emergency contact if: you have any medication questions and your symptoms worsen Follow-up/Referrals: Davide Jacobsen MD [Primary Care Provider] - (1 week) Diet: Heart Healthy Addtl Attending Provider Instructions: Mrs Cole, Wilian were hospitalized after having had severe dizziness (vertigo). This was caused by an acute stroke. The MRI of the brain showed tiny strokes on both sides of the brain. These tiny strokes were likely embolic in etiology - that is, small pieces of plaque or clot likely traveled from some other location in your body (often times the heart) up to the brain to cause your stroke event. Thus far we have not isolated the cause of your stroke. We did not find a small hole in your heart called a "PFO", your heart monitoring did not show an irregular heart rhythm called atrial fibrillation, etc. You did have a small amount of plaque in your neck vessels called carotid arteries. However, the carotid plaque was not the cause of this stroke event. Also, we found a small aneurysm in one of the arteries in the brain (the middle cerebral artery) but the artery is stable and not the cause of the stroke. You will need this aneurysm monitored over time by your family doctor or neurology. Your vertigo improved with use of meclizine medication. Dr Jonathan Barrera from [facility] saw you in consult and recommended the following - 1. aspirin 81mg daily indefinitely (purchase [id number]) 2. clopidogrel 75mg once daily x 21 days then stop; prescription sent to pharmacy for you 3. outpatient heart monitoring to rule out atrial fibrillation I will be in touch with [facility] to order the outpatient heart monitor that you will wear at home. In addition to the above please take meclizine for dizziness/vertigo as follows - * take 12.5mg of meclizine at bedtime tonight * take 12.5mg of meclizine twice daily x 2 days starting tomorrow * then, after the 2 days, simply take the meclizine NEEDED for dizziness I would recommend no driving or heavy exertional activities for about 1 week. Please see your family doctor within 1 week. Return to [facility] if - * you develop visual disturbance or loss of vision * you have worsening balance or difficulty walking * the vertigo / dizziness returns * you have weakness of any limb * you have difficulty speaking or swallowing * you develop a severe headache * any other concerns It was our pleasure to care for you! Addtl Hardware Technician Provider Instructions: Risk Factors for Stroke: You can reduce your chances of stroke by working with your medical provider to adopt a healthy lifestyle. Some specific ways to lower your chance of stroke are: * If you are a smoker, now is the time to stop smoking cigarettes * If you are diabetic, improve the control of your blood sugars * Avoid excessive amounts of alcohol * Control high blood pressure * Lose weight if you are overweight * Be sure to lead an active lifestyle * Eat a healthy diet low in salt, cholesterol and fat You should know about other risk factors for stroke that you are unable to control. These include: * Age 55 years or older * Male gender * Certain racial groups: , or / * Family History of Stroke, Mini stroke or Heart Attack * Sickle Cell Disease Who to Call and When: Medical Emergencies: Call 911 immediately if you experience any of the [facility] warning signs and symptoms of Stroke: * Sudden numbness or weakness of the face, arm or leg, especially on one side of the body * Sudden confusion, trouble speaking or understanding * Sudden trouble seeing in one or both eyes * Sudden trouble walking, dizziness, loss of balance or coordination * Sudden severe headache with no cause Do not delay calling 911 if you experience any warning signs or symptoms of a stroke. Delay in seeking medical attention may affect what treatments can be given to you. . Pending Studies at Discharge: No Stand-Alone Forms: My [employer], Smoking Cessation Medications and DC Order Prescriptions: New ondansetron HCl 4 mg tablet 4 mg PO Q6H PRN (Reason: nausea and vomiting) Qty: 14 0RF meclizine 12.5 mg tablet 12.5 mg PO BID PRN (Reason: dizziness) Qty: 20 0RF aspirin 81 mg tablet,delayed release (DR/EC) 81 mg PO DAILY Qty: 90 3RF Rx Instructions: purchase [id number] clopidogrel [Plavix] 75 mg tablet 75 mg PO DAILY 21 Days Qty: 21 0RF Continued AREXVY 0.5 ml IM ONCE Qty: 1 0RF losartan 50 mg tablet 50 mg PO DAILY Qty: 90 3RF famotidine 20 mg tablet 20 mg PO BID simethicone 125 mg tablet,chewable 375 mg PO DAILY PRN (Reason: abdominal distention) acetaminophen 325 mg tablet 1,000 mg PO BID cholecalciferol (vitamin D3) 5,000 unit tablet 5,000 units PO DAILY Qty: 30 diphenhydramine HCl 25 mg tablet 25 mg PO DAILY Discharge Orders: Discharge Order (Routine); Ordered 07/18/24 Ordered By: Andrew Madrigal/Other Patient Handouts: Symptoms of Stroke, Risk Factors for Stroke Admission Data Admit Date/Time: 07/18/24 08:41 Attending Provider: Andrew Mukherjee Admit Provider: Andrew Marie Primary Care Provider: Davide Jacobsen Other Providers: Jonathan Barrera; Andrew Mukherjee Hospital Stay Data Consultations 07/18/24 08:38 Consult Neurology Routine Diagnostic Imagining Performed 07/17/24 10:58 CT head/brain wo con Stat CTA head w con [CT angio head w con] Stat 07/17/24 10:59 CTA neck with con [CT angio neck with con] Stat 07/17/24 16:38 MRI Brain [MR brain wo/w con] Routine Pending Results Patient Have Any Pending Studies at Discharge: No Discharge Instructions Given to Patient (Per Discharging Provider) Mrs Cole, You were hospitalized after having had severe dizziness (vertigo). This was caused by an acute stroke. The MRI of the brain showed tiny strokes on both sides of the brain. These tiny strokes were likely embolic in etiology - that is, small pieces of plaque or clot likely traveled from some other location in your body (often times the heart) up to the brain to cause your stroke event. Thus far we have not isolated the cause of your stroke. We did not find a small hole in your heart called a "PFO", your heart monitoring did not show an irregular heart rhythm called atrial fibrillation, etc. You did have a small amount of plaque in your neck vessels called carotid arteries. However, the carotid plaque was not the cause of this stroke event. Also, we found a small aneurysm in one of the arteries in the brain (the middle cerebral artery) but the artery is stable and not the cause of the stroke. You will need this aneurysm monitored over time by your family doctor or neurology. Your vertigo improved with use of meclizine medication. Dr Jonathan Barrera from [facility] saw you in consult and recommended the following - 1. aspirin 81mg daily indefinitely (purchase [id number]) 2. clopidogrel 75mg once daily x 21 days then stop; prescription sent to pharmacy for you 3. outpatient heart monitoring to rule out atrial fibrillation I will be in touch with [facility] to order the outpatient heart monitor that you will wear at home. In addition to the above please take meclizine for dizziness/vertigo as follows - * take 12.5mg of meclizine at bedtime tonight * take 12.5mg of meclizine twice daily x 2 days starting tomorrow * then, after the 2 days, simply take the meclizine NEEDED for dizziness I would recommend no driving or heavy exertional activities for about 1 week. Please see your family doctor within 1 week. Return to [facility] if - * you develop visual disturbance or loss of vision * you have worsening balance or difficulty walking * the vertigo / dizziness returns * you have weakness of any limb * you have difficulty speaking or swallowing * you develop a severe headache * any other concerns It was our pleasure to care for you! Coding Diagnoses Dizziness R42 Hypokalemia E87.6 Bacteriuria R82.71 Elevated troponin R79.89
== END 2024-07-18 18:39 | disposition home or self-care (01) | DRG 66 ==
LOC: ED 10:41 → 2W 10:41 → SUATTDRO 16:25 → 2W 18:00